=== PATIENT | male | born 1970 | race Caucasian/White ===

== ENCOUNTER 2023-04-17 05:13 | Inpatient (IN) | payer MEDICAID ==
[~2023-04-17] VITALS: Ht 177.8 cm; Wt 65.1 kg
[2023-04-17 06:49] LABS: Basophils # (auto) 0 10 ^3/uL (0-0.2); Basophils % (auto) 0.7 % (0.0-2.0); Eosinophils # (auto) 0.1 10 ^3/uL (0-0.8); Eosinophils % (auto) 1.2 % (0.0-7.0); Hematocrit 46.6 % (41.0-53.0); Hemoglobin 16.7 g/dL (13.5-17.5); Lymphocytes # (auto) 1.8 10 ^3/uL (0.4-5.4); Lymphocytes % (auto) 30.4 % (10.0-50.0); Mean Corpuscular Hemoglobin 32.6 pg (28.0-32.0); Mean Corpuscular Hgb Conc. 35.8 g/dL (32.0-36.0); Monocytes # (auto) 0.7 10 ^3/uL (0-1.3); Monocytes % (auto) 11.5 % (0.0-12.0); Neutrophils # (auto) 3.3 10 ^3/uL (1.6-8.6); Neutrophils % (auto) 56.2 % (37.0-80.0); Nucleated Red Blood Cells % 0.2 %; Red Blood Cells 5.12 10^6/uL (4.5-5.90); Red Cell Distribution Width 12.9 % (11.8-14.3); White Blood Cell 5.9 10^3/uL (4.4-10.8)
[2023-04-17 06:50] LABS: Albumin 4.2 g/dL (3.4-5.0); Calcium 9.1 mg/dL (8.5-10.1)
[2023-04-17 06:53] LABS: BUN/Creatinine Ratio 13.7 (10.0-20.0); Bilirubin, Total 1.4 mg/dL (0.2-1.0); Total Protein 7.6 g/dL (6.4-8.2)
[2023-04-17] MEDS ORDERED: cefTRIAXone 1GM/50ML D5W 50 ML IV ONE (07:45)
[2023-04-17] MEDS ORDERED: metroNIDAZOLE 500MG/100ML 100 ML IV ONE (07:45)
[2023-04-17] MEDS ORDERED: SODIUM CHLORIDE 0.9% 1,000 ML IV ONE (07:45)
[2023-04-17] MEDS ORDERED: MORPHINE SULFATE INJ 2 MG/ml SYRG IV PRN (09:00)
[2023-04-17] MEDS ORDERED: ONDANSETRON HCL 4 MG/2 ML VIAL IV PRN (09:00)
[2023-04-17] MEDS: PANTOPRAZOLE 40 MG/10 ML VIAL INJ IV SCH (10:12)
[2023-04-17] MEDS: SODIUM CHLORIDE 0.9% 1,000 ML IV SCH ×2 (10:13→17:20)
[2023-04-17 10:19] LABS: Blood Alcohol < 3.0 mg/dL (<10)
[2023-04-17 10:24] LABS: Cholesterol 153 mg/dL (< 200); HDL Cholesterol 53 mg/dL (40-59); LDL Cholesterol 97 mg/dL (< 100); Triglycerides 37 mg/dL (< 150)
[2023-04-17 10:26] LABS: Alcohol, Urine < 3.0 mg/dL (0-10); Barbiturate Scree,Urine NEGATIVE (NEGATIVE); Benzodiazephine Screen, Urine NEGATIVE (NEGATIVE); Cannabinoid Screen, Urine POSITIVE (NEGATIVE)
[2023-04-17 10:33] LABS: Amphetamine Screen, Urine NEGATIVE (NEGATIVE); Cocaine Screen, Urine NEGATIVE (NEGATIVE); Opiate Scree,Urine NEGATIVE (NEGATIVE); Phencyclidine Screen, Urine NEGATIVE (NEGATIVE)
[2023-04-17 10:40] LABS: Urine Bacteria NONE SEEN /hpf (None Seen); Urine Blood Negative /uL (Negative); Urine WBC 1 /hpf (0 - 3)
[2023-04-17] MEDS: metroNIDAZOLE 500MG/100ML 100 ML IV SCH ×2 (14:42→22:21)
[2023-04-17 15:00] VITALS: PULSE 60; RESP 14; O2SAT 99
[2023-04-17 18:20] VITALS: BP 128/79; PULSE 52; RESP 18; TEMP 36.5; O2SAT 99
[2023-04-17 22:16] VITALS: BP 114/69; PULSE 48; RESP 18; TEMP 98.3; O2SAT 99
[2023-04-18] VITALS (8 sets, daily range): BP systolic 117–138; BP diastolic 66–76; PULSE 52–81; RESP 17–18; TEMP 97.4–98.1; O2SAT 97–100
[2023-04-18] MEDS: SODIUM CHLORIDE 0.9% 1,000 ML IV SCH ×3 (03:45→18:33)
[2023-04-18] MEDS: metroNIDAZOLE 500MG/100ML 100 ML IV SCH ×2 (05:32→14:26)
[2023-04-18 06:03] LABS: Basophils # (auto) 0 10 ^3/uL (0-0.2); Eosinophils # (auto) 0.2 10 ^3/uL (0-0.8); Hematocrit 43.2 % (41.0-53.0); Hemoglobin 15.3 g/dL (13.5-17.5); Lymphocytes # (auto) 1.5 10 ^3/uL (0.4-5.4); Lymphocytes % (auto) 33.3 % (10.0-50.0); Mean Corpuscular Hemoglobin 32.5 pg (28.0-32.0); Mean Corpuscular Hgb Conc. 35.4 g/dL (32.0-36.0); Mean Corpuscular Volume 91.8 fL (80.0-100.0); Monocytes # (auto) 0.5 10 ^3/uL (0-1.3); Monocytes % (auto) 11.9 % (0.0-12.0); Neutrophils # (auto) 2.2 10 ^3/uL (1.6-8.6); Neutrophils % (auto) 49.8 % (37.0-80.0); Nucleated Red Blood Cells % 0.1 %; Red Blood Cells 4.71 10^6/uL (4.5-5.90); Red Cell Distribution Width 12.7 % (11.8-14.3); White Blood Cell 4.4 10^3/uL (4.4-10.8)
[2023-04-18 06:10] LABS: Albumin 3.4 g/dL (3.4-5.0); Calcium 8.3 mg/dL (8.5-10.1); Potassium 4.2 mmol/L (3.5-5.1)
[2023-04-18 06:15] LABS: BUN/Creatinine Ratio 12.4 (10.0-20.0); Bilirubin, Total 1.7 mg/dL (0.2-1.0); Total Protein 6.2 g/dL (6.4-8.2)
[2023-04-18] MEDS ORDERED: KETOROLAC TROMETH 30 MG/ML 1ML VIAL IV ONE (06:45)
[2023-04-18 07:07] LABS: RPR Non Reactive (Non Reactive)
[2023-04-18] MEDS ORDERED: cefTRIAXone 1GM/50ML D5W 50 ML IV SCH (09:00)
[2023-04-18] MEDS: PANTOPRAZOLE 40 MG/10 ML VIAL INJ IV SCH (09:51)
[2023-04-18 12:59] LABS: Hepatitis A Ab IgM Negative; Hepatitis B Core IgM Negative; Hepatitis C Antibody Negative (Negative)
[2023-04-18 13:06] LABS: Hepatitis C Antibody Negative (Negative)
[2023-04-19] MEDS: SODIUM CHLORIDE 0.9% 1,000 ML IV SCH ×2 (00:04→11:00)
[2023-04-19 05:00] VITALS: BP 124/80; PULSE 51; RESP 19; TEMP 97.5; O2SAT 99
[2023-04-19 06:35] LABS: Basophils # (auto) 0 10 ^3/uL (0-0.2); Basophils % (auto) 0.8 % (0.0-2.0); Eosinophils # (auto) 0.2 10 ^3/uL (0-0.8); Eosinophils % (auto) 4.5 % (0.0-7.0); Hematocrit 46.2 % (41.0-53.0); Hemoglobin 16.4 g/dL (13.5-17.5); Lymphocytes # (auto) 1.8 10 ^3/uL (0.4-5.4); Lymphocytes % (auto) 36.1 % (10.0-50.0); Mean Corpuscular Hemoglobin 32.5 pg (28.0-32.0); Mean Corpuscular Hgb Conc. 35.6 g/dL (32.0-36.0); Mean Corpuscular Volume 91.3 fL (80.0-100.0); Monocytes # (auto) 0.6 10 ^3/uL (0-1.3); Monocytes % (auto) 10.9 % (0.0-12.0); Neutrophils # (auto) 2.4 10 ^3/uL (1.6-8.6); Neutrophils % (auto) 47.7 % (37.0-80.0); Nucleated Red Blood Cells % 0.1 %; Red Blood Cells 5.05 10^6/uL (4.5-5.90); Red Cell Distribution Width 13.1 % (11.8-14.3); White Blood Cell 5.1 10^3/uL (4.4-10.8)
[2023-04-19 06:57] LABS: Chloride 109 mmol/L (98-107); Potassium 3.9 mmol/L (3.5-5.1); Sodium 140 mmol/L (136-145)
[2023-04-19 07:23] LABS: Anion Gap 3 (5-15); BUN/Creatinine Ratio 9.8 (10.0-20.0); Blood Urea Nitrogen 8 mg/dL (7-18); Carbon Dioxide 28 mmol/L (21-32); GFR African American 127 mL/min; GFR Non-African American 105 mL/min; Glucose 89 mg/dL (74-106)
[2023-04-19 07:24] LABS: Calcium 8.3 mg/dL (8.5-10.1); Lipase 318 U/L (73-393)
[2023-04-19 08:03] VITALS: O2SAT 98
[2023-04-19 09:00] VITALS: BP 123/76; PULSE 67; RESP 17; TEMP 97.7; O2SAT 98
[2023-04-19 13:00] VITALS: BP 156/97; PULSE 82; RESP 17; TEMP 97.5; O2SAT 100
[2023-04-19 13:07] VITALS: TEMP 36.5
== END 2023-04-19 15:21 | disposition home or self-care (01) | DRG 254 ==
LOC: ER 05:13 → OVERFLOW 09:03 → EAST 17:27
PROVIDERS: ADMIT Internal Medicine Pulmonary Disease; ATTEND Student in an Organized Health Care Education/Training Program
DX: K59.00 Constipation, unspecified (principal); E87.1 Hypo-osmolality and hyponatremia; I47.1 Supraventricular tachycardia; N50.819 Testicular pain, unspecified; Z20.2 Contact with and (suspected) exposure to infections with a predominantly sexual mode of transmission; F41.9 Anxiety disorder, unspecified; E03.9 Hypothyroidism, unspecified; Z59.00 Homelessness unspecified; Z85.3 Personal history of malignant neoplasm of breast; Z85.6 Personal history of leukemia
CPT/HCPCS: 36415; 74176; 76870; 80048; 80053; 80061; 80074; 80307; 80320; 81001; 83605; 83690; 85025; 86592; 86703; 86803; 87040; 87340; C9113; G0378; J0696; J1885; J3490

== ENCOUNTER 2025-07-10 12:33 | Emergency (ER) | payer MEDICAID ==
[~2025-07-10] VITALS: Ht 177.8 cm; Wt 68.3 kg
--- NOTE | 2025-07-10 14:35 | DVH ---
Exam: CT CT AB PEL WO CON-NO ORAL OR IV History: L hip pain Comparison Study: CT CT AB PEL WO CON-NO ORAL OR IV on DOS: 04/17/23 TECHNIQUE: Multidetector CT of the abdomen and pelvis without IV contrast. Axial, coronal and sagitta l multiplanar reformats were obtained from the axial data set by the technologist. Radiation Dose Information: CT Dose: CTDI volume is 5.29 mGy. Dose-length product is 3.92 mGy*cm FINDINGS: Bibasilar atelectasis. Partially visualized heart is unremarkable. Liver, spleen, gallbladder, pancreas and adrenal glands are unremarkable. Kidneys, ureters and urinary bladder are unremarkable. Prostate measures 3.3 x 5.3 x 4.4 cm. Stomach is unremarkable. Small bowel loops unremarkable. Appendix is unremarkable. Moderate amount o f fecal material within the ascending colon with large amount of fecal material within the rectum. Sm all amount of fecal material within the remainder of the colon. No evidence of intraperitoneal free air or free fluid. No evidence of aortic aneurysm. No significant lymphadenopathy. The soft tissues unremarkable. No evidence of acute osseous abnormalities. Mild degenerative changes of bilateral hips with no obvious fractures of the visualized osseous structures IMPRESSION: No evidence of acute abdominopelvic abnormalities. Enlarged prostate. Recommend correlation with PSA. Large amount of fecal material within the rectum with moderate amount of fecal material within the ascending colon
--- NOTE | 2025-07-10 15:29 | ED.PDOC ---
Musculoskeletal HPI Comments HPI: Poor Historian. 54-year-old male presents to emergency department for evaluation of the least three-week history of left hip socket pain. No swelling or redness or injury here he states. However he feels that there is pain there. He has normal range of motion of the affected joint. Patient is neurovascularly intact in the affected extremity. Patient drove himself to the hospital here today. Past Medical History: Leukemia Past Surgical History: right femur, right clavicle and jaw REVIEW OF SYSTEMS: CONSTITUTIONAL: Denies acute: fever, diaphoresis, chills, generalized weakness. HEAD: Denies acute: headache, photophobia Eyes: Denies acute: Double vision, vision loss, eye pain, eye discharge. EARS: Denies acute: tinnitus, hearing loss, ear discharge, ear pain, THROAT: Denies acute: sore throat, swelling, difficulty swallowing , pain with swallowing, change in voice. NECK: Denies acute: neck pain, neck swelling, stiff neck. HEART: Denies acute : chest pain, palpitations, LUNGS: Denies acute: SOB, wheezing, cough, hemoptysis ABDOMEN: Denies acute: abdominal pain, Nausea, Vomiting, diarrhea, melena , hematemesis, hematochezia SKIN: Denies acute: rash, redness, lesions, itchiness. EXTREMITIES: Denies acute: calf pain, numbness, tingling, weakness, Neuro: Denies acute: focal neurological deficit, motor or sensory focal neurological deficit, tremors, seizure like activity, confusion, dizziness, change in mental status, loss of bowel or bladder function, cauda equina like symptoms. : Denies acute: dysuria, hematuria, flank pain, increase in urinary frequency. PSYCH: Denies acute: hallucination, suicidal ideation, homicidal ideation. PHYSICAL EXAM: General: ---no-----acute distress, awake and alert. Head: normocephalic, atraumatic. Neck: supple, trachea is midline, no swelling. Throat: Normal phonation. Eyes:, no erythema, no purulent discharge, no proptosis, no icterus. Heart: regular rate, regular rhythm, no significant murmur appreciated. Lungs: no apparent respiratory distress, Able to speak in full sentences. No wheezing, no rhonchi, no crackles. No stridors Clear to auscultation bilaterally. Abdomen: non tender to palpation, non distended, soft, no guarding, no rebound, + bowel sounds. Neuro: Awake, Alert, oriented to name, self, situation, follows commands GCS=15. Speech is normal. Skin: no petechia, no purpura, no cyanosis, non-pale, not jaundice. Lower extremities: --no - Pitting edema no deformity, no focal swelling, no calf TTP. Makes eye contact. moves all four extremities. Face: no apparent facial droop. Ambulating in the ED independently. ED COURSE: DISCLAIMER: This medical document was created using an electronic medical record system with voice recognition software and computerized dictation system. Although this document has been carefully reviewed, there might still be some phonetic and typographical errors. Occasional wrong-word or "sound-alike" substitutions may have occurred due to the inherent limitations of voice recognition software. These areas are purely typographical due to imperfections of the software programs and do not reflect any compromise in the patient's medical care. Please read the chart carefully and recognize, using context, where these substitutions have occurred. Chief Complaint: Lower Extremity Time Seen by MD: 13:36 Primary Care Provider: NONE Reviewed Notes: Allergies Allergies: Coded Allergies: Aspirin (Verified Allergy, Unknown, 07/10/25) Home Meds No Active Prescriptions or Reported Meds Information Source: Patient Mode of Arrival: Ambulatory Location: Left Was a procedure done? Was a procedure done?: No Differential Diagnosis EXT Differential Diagnosis: Sprain, Dislocation, Contusion, Strain, Arthritis X-Ray, Labs, Meds, VS Vital Signs Date Time Temp Pulse Resp B/P (MAP) Pulse Ox O2 Delivery O2 Flow Rate FiO2 07/10/25 12:35 97.8 84 18 135/99 99 97.8 Time of 1ST Reevaluation: 15:31 Reevaluation 1ST: Unchanged Patient Education/Counseling: Diagnosis, Treatment Family Education/Counseling: Other Departure 1 Departure Time of Disposition: 15:31 Impression: Primary Impression: Left hip pain Additional Impressions: Enlarged prostate Constipation Disposition: 01 HOME / SELF CARE / HOMELESS Condition: Stable Additional Instructions: Additional instructions: Please read all instructions provided in this packet carefully. You MUST follow-up with your primary care/family doctor in 1 to 2 days. If you are unable to see your primary care/family doctor, please return to our emergency room for re-assessment and re-evaluation in 1 to 2 days. Return to the emergency room here in our facility or to the nearest ER [facility] if your symptoms change or worsen. CONSULTATIONS: you MUST Follow-up for consultation as soon as possible with: -orthopedic doctor in 1-2 days. Follow up with the Urology regarding your enlarged prostate in 1-2 days. Please call for appointment. You MUST call the consultants office yourself to make an appointment. You may need to arrange that through your insurance and/or your primary/family doctor. If you are unable to see the senior telecommunications consultant in 1 to 2 days, you must return to our emergency room (or any other ER of your choice) for re-assessment and re-ev aluation. Adequate fluid hydration. Increase fiber intake. Although you have been discharged from the Emergency Department, this does not mean that you have a "clean bill of health". No definitive diagnosis for your symptoms has been made today. It is possible that you are in the process of developing a serious illness. This is why you must return to the ED without fail if any new or worsening symptoms develop. Below is a copy of your radiological report for follow up: [place] [id number] Ph: [phone] DIAGNOSTIC IMAGING Diagnostic Imaging Report : [id number] Signed PATIENT: MITESH VANG ACCT: [id number] UNIT: [id number] : 1970 LOC: ER ROOM / BED: / AGE / SEX: 54 / M ADM STATUS: REG ER SERVICE [id number] ORDERING PHYSICIAN: TERESITA MEMBRENO DO PROCEDURE(s): ABPL - CT AB PEL WO CON-NO ORAL OR IV REASON: L hip pain ORDER NUMBER(s): [id number], ACCESSION NUMBER(s): [id number] Exam: CT CT AB PEL WO CON-NO ORAL OR IV History: L hip pain Comparison Study: CT CT AB PEL WO CON-NO ORAL OR IV on DOS: 04/17/23 TECHNIQUE: Multidetector CT of the abdomen and pelvis without IV contrast. Axial, coronal and sagittal multiplanar reformats were obtained from the axial data set by the technologist. Radiation Dose Information: CT Dose: CTDI volume is 5.29 mGy. Dose-length product is 3.92 mGy*cm FINDINGS: Bibasilar atelectasis. Partially visualized heart is unremarkable. Liver, spleen, gallbladder, pancreas and adrenal glands are unremarkable. Kidneys, ureters and urinary bladder are unremarkable. Prostate measures 3.3 x 5.3 x 4.4 cm. Stomach is unremarkable. Small bowel loops unremarkable. Appendix is unremarkable. Moderate amount of fecal material within the ascending colon with large amount of fecal material within the rectum. Small amount of fecal material within the remainder of the colon. No evidence of intraperitoneal free air or free fluid. No evidence of aortic aneurysm. No significant lymphadenopathy. The soft tissues unremarkable. No evidence of acute osseous abnormalities. Mild degenerative changes of bilateral hips with no obvious fractures of the visualized osseous structures IMPRESSION: No evidence of acute abdominopelvic abnormalities. Enlarged prostate. Recommend correlation with PSA. Large amount of fecal material within the rectum with moderate amount of fecal material within the ascending colon ATED BY: VANDANA HUYNH DO DICTATED DATE/TIME: 07/10/25 1432 SIGNED BY: VANDANA HUYNH DO SIGNED DATE/TIME: 07/10/25 1432 CC: e-Prescriptions No Active Prescriptions or Reported Meds Discharged With: Self Critical Care Note Critical Care Time?: No I personally scribed for TERESITA MEMBRENO DO ([email or web address]) on 07/10/25 at 15:29. Electronically submitted by Irma Nelson ([facility]). I personally scribed for TERESITA MEMBRENO DO ([email or web address]) on 07/10/25 at 15:56. Electronically submitted by Irma Nelson ([facility]). TERESITA MEMBRENO DO Jul 10, 2025 15:29
[2025-07-10 16:09] VITALS: BP 141/84; PULSE 68; RESP 18; TEMP 98.6
[2025-07-10 16:10] VITALS: O2SAT 95
[2025-07-10] MEDS: KETOROLAC TROMETH 60MG/2ML VIAL IM ONE (16:17)
== END 2025-07-10 16:17 | disposition home or self-care (01) ==
LOC: ER 12:34
DX: N40.0 Benign prostatic hyperplasia without lower urinary tract symptoms (principal); K59.00 Constipation, unspecified; M25.552 Pain in left hip; Z88.6 Allergy status to analgesic agent; Z85.6 Personal history of leukemia
CPT/HCPCS: 74176; 96372; 99285; J1885